=== PATIENT | female | born 1985 | race Caucasian/White ===

== ENCOUNTER 2017-05-06 11:22 | Inpatient (IN) ==
[~2017-05-06 11:22] MED LIST: *HR* Nalbuphine 20 MG/ML AMPUL IVP PRN; Famotidine 20 MG/2 ML VIAL IVP PRN; Metoclopramide 10 MG/2 ML VIAL IVP PRN; Ondansetron 4 MG/2 ML VIAL IVP PRN; Ringers Solution, Lactated 1,000 ML IVC SCH; miSOPROStol 100 MCG TABLET PO SCH
[2017-05-06] MEDS ORDERED: Famotidine 20 MG/2 ML VIAL IVP PRN (11:44)
[2017-05-06] MEDS ORDERED: miSOPROStol 25 MCG TABLET PO PRN (11:44)
[2017-05-06] MEDS ORDERED: Ondansetron 4 MG/2 ML VIAL IVP PRN (11:44)
[2017-05-06] MEDS ORDERED: Metoclopramide 10 MG/2 ML VIAL IVP PRN (11:44)
[2017-05-06] MEDS ORDERED: Ringers Solution, Lactated 1,000 ML IVC SCH (11:45)
[2017-05-06 11:54] LABS: Basophils % 0.1 %; Eosinophils % 0.5 %; Hematocrit 36.4 % (35.3-44.9); Hemoglobin 12.4 g/dL (11.5-15.4); Immature Granulocytes % 0.5 % (0-4); Lymphocytes % 13.3 %; Mean Corpuscular HGB Conc 34.1 g/dL (31.6-35.5); Mean Corpuscular Hemoglobin 31.8 pg (28.0-33.3); Mean Corpuscular Volume 93.3 fL (83.0-100.0); Mean Platelet Volume 10.7 fL (9.4-12.4); Monocytes # 0.5 K/mcL (0.0-1.3); Monocytes % 6.9 %; Platelet Count 122 K/mcL (140-400); Red Cell Distribution Width 12.7 % (11.5-14.5); Segmented Neutrophils % 78.7 %
--- NOTE | 2017-05-06 13:27 | OB Labor Progress Note ---
Date of Encounter: 05/06/17 Time of Encounter: 13:26 Labor Progress Note - Subjective Subjective: Pt feeling some tightening - Cervix Cervix: 3/80/-2 - Heart Tones Heart Tones: RNST - Interventions Interventions: AROM clear - Plan Plan: Expect
--- NOTE | 2017-05-06 13:31 | OB/GYN History & Physical ---
Date of Encounter: 05/06/17 Time of Encounter: 13:29 Assessment and Plan (1) Elective induction of labor planned Current visit: No Status: Acute Admit to labor and delivery and Cytotec performed amniotomy when able spontaneous vaginal delivery. (2) 40 weeks gestation of Current visit: Yes Status: Acute Will admit to Labor and delivery for cytotec induction. History of Present Illness Chief complaint: Here for induction HPI: Ms. Sims is a 31 year old female With 3 para 1 female presents at 40 gestation induction of labor. had been complicated. On arrival she reports irregular contractions no bleeding or leakage fluid. Past Med Surg Social Fam HX - Past Medical History Source: patient, old records reviewed Medical history: no medical history Psychiatric history: no psych history - Past Surgical History Surgical History: other - Social History Smoking Status: Never smoker Smokeless Tobacco Status: No Alcohol use: none Drug use: none - Family History Mother Family Member Ethnicity: Non- Living Status: Still Living Hx Family Cardiac Disorders: No Hx Family Respiratory Disorders: No Hx Family Cancer: No Hx Family GI Disorders: Yes (HIATAL HERNIA) Hx Family Endocrine Disorder: No Hx Family Neuromuscular Disorders: No Hx Family Neurologic Disorders: No Hx Family HEENT Disorders: No Hx Family Autoimmune Disorders: No Obstetrical History - Pregnancies : 3 Para: 1 Medications and Allergies Acetaminophen [Tylenol] 500 mg PO Q6HR 08/24/15 [History] Vit/FA 1 each PO DAILY 08/24/15 [History] 3 Allergy/AdvReac Type Severity Reaction Status Date / Time drospirenone [From ALEX (28)] Allergy Severe Seizure Verified 05/04/17 09:21 ethinyl estradiol Allergy Severe Seizure Verified 05/04/17 09:21 [From ALEX (28)] morphine Allergy Intermediate Rash Verified 05/04/17 09:21 Exam - Constitutional Constitutional: well developed, well nourished, no acute distress - HEENT HEENT: EOMI, PERRL - Neck Neck exam: full ROM - Lungs Respiratory exam: CTAB - Cardiovascular Cardiovascular exam: RRR - Abdomen Abdomen: Present: gravid, non tender - Extremities Extremities exam: full ROM Deep Tendon Reflex Grade: 2+ Normal - Cervix Dilation: 3 Effacement: 90 Station: -2 - Uterus Uterus exam: Present: enlarged Results Result Diagrams: 05/06/17 10:57 Abnormal lab results Plt Count 122 K/mcL (140-400) L 05/06/17 10:57 All other labs normal. - VTE Reasons for not Prescribing Prophylaxis: Treatment not Indicated - Low risk for VTE
[2017-05-06] MEDS ORDERED: *HR* Ropivacaine/PF 0.2% 10 ML AMPUL ONE (14:04)
[2017-05-06] MEDS ORDERED: *HR* FentaNYL (PF) 100 MCG/2 ML VIAL ONE (14:04)
[2017-05-06] MEDS ORDERED: Epidural Premix (fent/bupiv) 110 ML EP ONE (14:05)
--- NOTE | 2017-05-06 14:33 | Anesthesia Evaluation PreOp ---
Date of Encounter: 05/06/17 Time of Encounter: 14:31 - Past History Planned Operation: lloyd Cardiac History: Denies any Significant Hx Pulmonary History: Denies Any Significant HX [employer] History: Denies Any Significant HX Other Medical History: Denies Any Significant HX Anesthesia History: No Prior Anesthetic Complications, Past Anesthesia : Yes (40 weeks, ) Alcohol Use: none Drug use: none Medications and Allergies Acetaminophen [Tylenol] 500 mg PO Q6HR 08/24/15 [History] Vit/FA 1 each PO DAILY 08/24/15 [History] 3 Allergy/AdvReac Type Severity Reaction Status Date / Time drospirenone [From ALEX (28)] Allergy Severe Seizure Verified 05/04/17 09:21 ethinyl estradiol Allergy Severe Seizure Verified 05/04/17 09:21 [From ALEX (28)] morphine Allergy Intermediate Rash Verified 05/04/17 09:21 - Meds/Allergy Pre-op Review Medications Reviewed: Yes Allergies Reviewed: Yes Beta Blockers on Current Med List: No Anesthesia Results - Labs 05/06/17 10:57 Anesthesia Exam bp 112/76 hr 67 rr 20 spo2 97 Height: 64 Weight: 63 - HEENT Pupil (Motor): Pupils equal Mallampati: II Teeth: Normal Oral Opening: Greater than 3 - [employer] LOC: Oriented [employer] Motor: Normal RUE, Normal LUE, Normal RLE, Normal LLE, Normal Face [employer] Sensory: Normal: RUE, LUE, RLE, LLE, Face - Cardiac Rhythm: Regular Murmur: None JVD: No Carotid Bruit: No - Pulmonary Breath Sounds: bilateral Clear Respiratory Effort: Symmetrical Anesthesia Assess/Plan ASA Score: 2 Modified Moses Scale for Level of Consciousness: Cooperative, oriented, and tranquil Anesthetic Plan: Regional Monitoring Plan: Standard Monitors Recovery Plan: PACU
--- NOTE | 2017-05-06 14:42 | Anesthesia Procedures ---
Date of Encounter: 05/06/17 Time of Encounter: 14:40 Procedures: Anesthesia - Epidural/Spinal Patient ID/Chart reviewed: Yes Patient examined: Yes OB Eval: Gestational age: 40 OB Eval: Contractions: Non-stressed pattern Consent Obtained: Yes Supplemental Oxygen: None/Room Air Site Prep: Aseptic Technique Patient position: upright Local Anesthetic: Lidocaine 1% Amount of Local Anesthetic used: 3 Touhy Needle Gauge: 18 Touhy Needle Depth (cm): 4 Catheter Depth at Skin (cm): 10 Test Dose (1.5% Lido + Epi): Volume given (mls): 3 Test Dose Result: Negative Loading Dose: 0.25% Marcaine (mls): 5 Loading Dose: Fentanyl (mcg): 100 Loading Dose: Other: 2ml nss Loading Dose Administered: Thru Touhy Needle Infusion Med: 0.125% Bupivacaine w/ 2 mcg/ml Fentanyl Infusion Rate (mls/hr): [address]: Tegaderm Interspace Used: L3-L4 Loss of Resistance (AYAZ): Yes Blood: No CSF: No Paresthesia: No Procedure: strict asepsis, good ayaz, fhr unchanged
[2017-05-06] MEDS ORDERED: Oxytocin 20 units/ LR 1000 mL 20 UNIT/1,000 ML BAG IVC ONE ×2 (17:51→23:33)
--- NOTE | 2017-05-06 19:43 | OB/GYN Procedure Note ---
Delivery - Delivery Date: 05/06/17 Provider: Yash Price Intrapartum events: meconium Delivery induction: AROM, misoprostol Delivery monitor: external FHT, external uterine Anesthesia: epidural Estimated Blood Loss: 100 - Infant (s) Infant A Infant Delivery Date: 05/06/17 Delivery Time: 19:18 Presentation: vertex Position: PAULO Route of delivery: Gender: Female Viability: Viable Shoulder Dystocia: not encountered Placenta: spontaneous Cord: 3 umbilical vessels - Repair Episiotomy: none Laceration Description: None - Complications Delivery complications: none - Disposition Mom disposition: stable in LDR [place] disposition: stable in LDR - Comments Comments: Pt is s/p of liveborn female infant over intact perineum. Thin MSF had been noted and respiratory therapy and nursery staff was present at delivery. We had spontaneous delivery of meconium stained placenta and membranes. Weight and apgars are pending at this time as baby was taken to nursery b/c of dusky color. O2 sat was 100 % and baby was active.
[2017-05-06] MEDS ORDERED: Oxytocin 20 units/ LR 1000 mL 20 UNIT/1,000 ML BAG IVC SCH (23:33)
[2017-05-06] MEDS ORDERED: Acetaminophen 325 MG TABLET PO PRN (23:33)
[2017-05-06] MEDS ORDERED: Measles/Mumps/Rubella Vacc 0.5 ML VIAL SQ PRN (23:33)
[2017-05-06] MEDS ORDERED: Rho Immune Globulin 1,500 UNIT SYRINGE IM PRN (23:33)
[2017-05-07 05:35] LABS: Basophils % 0.1 %; Eosinophils # 0.1 K/mcL (0.0-0.6); Eosinophils % 0.6 %; Hematocrit 37.7 % (35.3-44.9); Hemoglobin 12.8 g/dL (11.5-15.4); Immature Granulocytes % 0.4 % (0-4); Lymphocytes # 1.2 K/mcL (0.6-4.6); Lymphocytes % 9.7 %; Mean Corpuscular Hemoglobin 31.7 pg (28.0-33.3); Mean Corpuscular Volume 93.3 fL (83.0-100.0); Mean Platelet Volume 10.8 fL (9.4-12.4); Monocytes # 0.9 K/mcL (0.0-1.3); Monocytes % 7.3 %; Neutrophils # 9.8 K/mcL (1.6-8.9); Platelet Count 116 K/mcL (140-400); Red Blood Count 4.04 M/mcL (3.82-4.97); Red Cell Distribution Width 12.7 % (11.5-14.5); Segmented Neutrophils % 81.9 %
--- NOTE | 2017-05-07 08:04 | Discharge Summary ---
Date of Encounter: 05/07/17 Time of Encounter: 08:00 - Discharge Diagnosis (1) Vaginal delivery Priority: Primary Status: Acute Comments: Pt meeting all milestones, pain well managed on po pain medication. bottle feeding, desires discharge - Discharge Medications Prescriptions: Docusate [Colace] 100 mg PO BID #60 Home Medications: Acetaminophen [Tylenol] 500 mg PO Q6HR 08/24/15 [History] Vit/FA 1 each PO DAILY 08/24/15 [History] Acetaminophen [Tylenol] 650 mg PO Q6HR PRN tab 05/07/17 [Rx] Docusate [Colace] 100 mg PO BID #60 05/07/17 [Rx] Ibuprofen [Motrin] 600 mg PO Q6HR PRN #60 tab 05/07/17 [Rx] Vit/FA 1 each PO DAILY tab 05/07/17 [Rx] Allergies/Adverse Reactions: 3 Allergy/AdvReac Type Severity Reaction Status Date / Time drospirenone [From ALEX (28)] Allergy Severe Seizure Verified 05/04/17 09:21 ethinyl estradiol Allergy Severe Seizure Verified 05/04/17 09:21 [From ALEX (28)] morphine Allergy Intermediate Rash Verified 05/04/17 09:21 Data Procedures and tests throughout hospitalization: Laboratory Tests 05/06/17 05/07/17 10:57 05:21 WBC 7.6 12.0 H D RBC 3.90 4.04 Hgb 12.4 12.8 Hct 36.4 37.7 MCV 93.3 93.3 MCH 31.8 31.7 MCHC 34.1 34.0 RDW 12.7 12.7 Plt Count 122 L 116 L MPV 10.7 10.8 Immature Gran % 0.5 0.4 Seg Neutrophils % 78.7 81.9 Lymphocytes % 13.3 9.7 Monocytes % 6.9 7.3 Eosinophils % 0.5 0.6 Basophils % 0.1 0.1 Neutrophils # 6.0 9.8 H Lymphocytes # 1.0 1.2 Monocytes # 0.5 0.9 Eosinophils # 0.0 0.1 Basophils # 0.0 0.0 Labs on day of discharge: Labs from last 24 hours 05/07/17 05/06/17 05:21 10:57 WBC 12.0 H D 7.6 RBC 4.04 3.90 Hgb 12.8 12.4 Hct 37.7 36.4 MCV 93.3 93.3 MCH 31.7 31.8 MCHC 34.0 34.1 RDW 12.7 12.7 Plt Count 116 L 122 L MPV 10.8 10.7 Immature Gran % 0.4 0.5 Seg Neutrophils % 81.9 78.7 Lymphocytes % 9.7 13.3 Monocytes % 7.3 6.9 Eosinophils % 0.6 0.5 Basophils % 0.1 0.1 Neutrophils # 9.8 H 6.0 Lymphocytes # 1.2 1.0 Monocytes # 0.9 0.5 Eosinophils # 0.1 0.0 Basophils # 0.0 0.0 Date of admission: 05/06/17 11:22 Primary care physician: PCP MERLE Consults: 05/06/17 23:33 Consult to Safety Analyst [CONS] Routine Comment: Vaginal delivery, consult needed Discharging clinician: Joelle Ortez Anticipated date of discharge: 05/07/17 - Patient Status Disposition: Home, Self-Care Condition: Good Functional capacity at discharge: independent ambulation Overall status at discharge: patient is back to baseline - Discharge Instructions Follow Up With: MERLE,PCP [Primary Care Provider] - Yash Price MD [Partnered Physician] - - Diet and Activity Activity: resume usual activities as tolerated Diet: regular diet Hospital Course Reason for admission: induction of labor, IUP at term Delivery: Episiotomy: none Laceration: none Other procedures: none complications: none Discharge diagnosis: IUP at term delivered [place] baby: female Hospital course: Delivery - Delivery Date: 05/06/17 Provider: Yash Price Intrapartum events: meconium Delivery induction: AROM, misoprostol Delivery monitor: external FHT, external uterine Anesthesia: epidural Estimated Blood Loss: 100 - (s) A Infant Delivery Date: 05/06/17 Delivery Time: 19:18 Presentation: vertex Position: PAULO Route of delivery: Gender: Female Viability: Viable Shoulder Dystocia: not encountered Placenta: spontaneous Cord: 3 umbilical vessels - Repair Episiotomy: none Laceration Description: None - Complications Delivery complications: none - Disposition Mom disposition: stable in PP and appropriate for discharge - Comments Comments: Pt is s/p of liveborn female infant over intact perineum. Thin MSF had been noted and respiratory therapy and nursery staff was present at delivery. We had spontaneous delivery of meconium stained placenta and membranes. Weight and apgars are pending at this time as baby was taken to nursery b/c of dusky color. O2 sat was 100 % and baby was active. Time Attestation: Total time spent providing and/or coordinating discharge services: Time Spent: Less than 30 minutes Exam - Constitutional Vitals: Temp Pulse Resp BP Pulse Ox 97.7 F 54 14 129/74 97 05/07/17 03:28 05/07/17 03:28 05/07/17 03:28 05/07/17 03:28 05/07/17 00:30 General appearance IM: A&O X 3 - Respiratory Respiratory exam: Present: CTAB - Cardiovascular Cardiovascular exam IM: Present: RRR - GI/Abdominal GI/Abdominal exam IM: normal bowel sounds, soft - Uterine Tone: Firm Uterus Position: At Umbilicus - Extremities Exam Extremities exam IM: Present: normal capillary refill, normal inspection - Neurological Exam Neurological exam: normal gait, oriented X3, reflexes normal - Psychiatric Additional comments: reports good mood.
[2017-05-07 08:08] VITALS: BP 102/55
[2017-05-07] MEDS ORDERED: Prenatal Vit/FA 1 EACH TABLET PO SCH (09:00)
== END 2017-05-07 21:00 | disposition home or self-care (01) | DRG 775 ==
LOC: 1NENULAB 11:22 → 1NENUOBS 22:49
PROVIDERS: ADMIT Obstetrics & Gynecology; ATTEND Obstetrics & Gynecology